=== PATIENT | male | born 2005 | race Caucasian/White ===

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

== ENCOUNTER 2025-07-29 21:04 | Emergency (ER) | payer OTHER, SELFPAY ==
[2025-07-29 21:06] VITALS: BP 143/84; PULSE 82; TEMP 36.8; O2SAT 100; BMI 25.1
--- NOTE | 2025-07-29 21:21 | XR_ITS ---
The [place] [id number] Patient Name: GAYATRI ADAN MRN: [id number] date: 2005 Sex: M Assigned Patient Location: ER Current Patient Location: Accession/Order Number: [id number] Exam Date: 07/29/2025 23:26 Report Date: 07/30/2025 09:11 At the request of: GAMAL GERONIMO Procedure: XR wrist LT 2V LEFT WRIST - 2 views COMPARISON : left hand 07/27/2021 CLINICAL DATA: Pain after patient was hit at the wrist medially with a baseball. AP and lateral views were obtained. There is a bony ossicle adjacent to the tip of the ulnar styloid. This appears corticated and may be old. Clinical correlation is however suggested. There is no other acute fracture or dislocation. There is mild soft tissue swelling at the wrist. XR/XR wrist LT 2V IMPRESSION: Potential ulnar styloid fractures, however not definitely acute. Focal clinical correlation is suggested along with follow-up, as warranted. Impression dictated by: Meseert Dunham M.D. 07/30/2025 9:11 AM Dictation Location: [facility] Electronically authenticated by: [id number] Y Date: 07/30/2025 09:11
--- NOTE | 2025-07-29 21:54 | ED.GENADUL1 ---
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 He is right-handed. He denies any previous injury to the wrist but did have a boxer's fracture in this hand previously. He denies any numbness or tingling to the left hand Related Data Home Medications ?Medication ?Instructions ?Recorded ?Confirmed No Known Home Medications 07/29/25 07/29/25 Allergies Allergy/AdvReac Type Severity Reaction Status Date / Time No Known Drug Allergies Allergy Verified 07/29/25 21:10 Opioid HPI Opioid Management Most Recent Opioid Data: Last Pain Scale 9 Today, 21:20 Review of Systems ROS Status of ROS 10 or more systems reviewed and unremarkable except as noted in history and below PFSH PFSH Social History Little interest or pleasure in doing things: not at all Feeling down, depressed, or hopeless: not at all Exam Narrative Exam Narrative: General: No distress, age-appropriate Skin: Warm, dry, no pallor. No rash. Head: Normocephalic, atraumatic. Neck: Supple, non-tender. Eye: Pupils are equal, round and EOMI. No scleral icterus. Ears, Nose, Mouth, and Throat: No nasal mucosal hypertrophy. Oral mucosa is moist, no posterior oropharynx erythema, uvula is mid-line Cardiovascular: Regular Rate and Rhythm without murmur, gallop or rub. Respiratory: No accessory muscle use or respiratory distress. Back: No midline thoracic or lumbar vertebral tenderness. Musculoskeletal: Full ROM of all extremities, no calf or popliteal tenderness. Left wrist decreased flexion/extension/pronation/supination secondary to pain, tenderness with palpation of the distal ulna. There is swelling around this area. 2+ radial pulse palpated. Patient able to make a full fist. Sensation intact distally to all fingers and thumb. Neurological: A&O x4. No cranial nerve dysfunction observed. No truncal ataxia. Moves all extremities. Sensation intact. Psychiatric: Cooperative and interactive. Normal mood and affect. Constitutional Vital Signs, click to edit/add: Last Vital Signs Temp 98.2 F 07/29/25 21:06 Pulse 82 07/29/25 21:06 Resp 18 07/29/25 21:06 BP 143/84 H 07/29/25 21:06 Pulse Ox 100 07/29/25 21:06 O2 Del Method Room Air 07/29/25 21:06 Course Vital Signs Vital signs: Vital Signs Temperature 98.2 F 07/29/25 21:06 Pulse Rate 82 07/29/25 21:06 Respiratory Rate 18 07/29/25 21:06 Blood Pressure 143/84 H 07/29/25 21:06 Pulse Oximetry 100 07/29/25 21:06 Oxygen Delivery Method Room Air 07/29/25 21:06 Temperature 98.2 F 07/29/25 21:06 Pulse Rate 82 07/29/25 21:06 Respiratory Rate 18 07/29/25 21:06 Blood Pressure 143/84 H 07/29/25 21:06 Pulse Oximetry 100 07/29/25 21:06 Oxygen Delivery Method Room Air 07/29/25 21:06 Medical Decision Making MDM Narrative Medical decision making narrative: Patient is a 19-year-old male accompanied by his father to the emergency department [facility] with complaints of left wrist pain after being hit with a baseball that was going 80 mph. 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 He did have a previous boxer's fracture to this hand. He denies any numbness or tingling to the hand. He does have some pain with active range of motion, especially with pronation/supination. X-ray left wrist 2 views AP/lateral were reviewed and interpreted by myself as negative for apparent fracture or dislocation. Soft tissue swelling lateral to the distal ulna. There appears to be a well-corticated avulsion from the distal ulna. Results discussed with patient and his father. I am going to place him in a Velcro wrist splint that he will maintain until he is seen by an orthopedic physician. He can remove for hygiene. He has had an ACL reconstruction and has seen a few orthopedic physicians that he will call for an appointment tomorrow. I have no concerns for compartment syndrome at this time, I did discuss signs/symptoms of this with patient and his father. He can take OTC NSAIDs, use ice, and elevate to help with pain control. Patient was discharged home in good condition. Differential Diagnosis Differential Diagnosis: Ulnar fracture, wrist contusion, compartment syndrome Discharge Plan Discharge Chief Complaint: Extremity Injury, Upper Clinical Impression: Contusion of left wrist, initial encounter Contusion of left wrist Qualifiers: Encounter type: initial encounter Qualified Code(s): S60.212A - Contusion of left wrist, initial encounter Patient Disposition: Home, Self-Care Time of Disposition Decision: 21:51 Condition: Good Mode of Transportation: Private Vehicle Prescriptions / Home Meds: No Action No Known Home Medications Print Language: Ukrainian Instructions: Contusion in Adults (ED) Additional Instructions: Follow up with Orthopedic physician. Maintain Velcro wrist splint, remove for hygiene. Do not lift/ push/ or pull with the left hand. Referrals: WILFRIDO LEOS [Physician, Unknown] - 1 week Referral Note: Follow-up with established Orthopedic physician as soon as possible Tamar Henry MD [Primary Care Provider, Family Practice] - 1 week
== END 2025-07-29 22:16 | disposition home or self-care (01) ==
PROVIDERS: Emergency Provider Emergency Medicine; PCP Family Medicine
DX: S60.212A Contusion of left wrist, initial encounter (principal); W21.03XA Struck by baseball, initial encounter; Y93.64 Activity, baseball
CPT/HCPCS: 73100; 99283